=== PATIENT | female | born 1945 | race Caucasian/White ===

== ENCOUNTER 2018-07-16 14:58 | Inpatient (IN) | payer OTHER ==
[~2018-07-16] VITALS: Ht 152.4 cm; Wt 70.8 kg
--- NOTE | ~2018-07-16 | 2DMMODE ---
[facility] [address] [place] [address] 2 D/M-MODE ECHOCARDIOGRAM Name: TANIKA STEVENSON Room #: 456-P ADM IN M.R.#: [id number] Admission: 07/16/18 Attend Phys: Sherice Vicente Discharge: Date of : 43 Date of Service: 07/17/18 1151 Report #: [id number] THIS REPORT FOR: //name// APPROVED REPORT Study performed: 07/17/2018 11:12:57 EXAM: Comprehensive 2D, Doppler, and color-flow Echocardiogram Patient Location: Echo lab Room #: [facility] Status: routine BSA: 1.74 HR: 101 bpm BP: 110/65 mmHg Rhythm: Tachycardia Other Information Study Quality: Adequate/low parasternal window. Lung disease. Indications Dyspnea Hx: COPD 2D Dimensions RVDd: 30.38 mm IVSd: 11.06 (7-11mm) LVOT Diam: 20.42 (18-24mm) LVDd: 38.53 mm PWd: 10.14 (7-11mm) LVDs: 24.16 (25-40mm) Aortic Root: 32.08 mm Volumes Left Atrial Volume (Systole) Single Plane 4CH: 28.67 mL Single Plane 2CH: 27.76 mL LA ESV Index: 18.00 mL/m2 Aortic Valve AoV Peak Adelfo.: 1.29 m/s AO Peak Gr.: 6.64 mmHg LVOT Max P.01 mmHg LVOT Max V: 1.23 m/s EFRA Vmax: 3.11 cm2 Mitral Valve E/A Ratio: 0.6 [facility] [id number] [place] [address] 2 D/M-MODE ECHOCARDIOGRAM Name: ELVATANIKA Room #: 456-P [facility].#: [id number] Admission: 07/16/18 Attend Phys: Sherice Vicente Discharge: Date of : 43 Date of Service: 07/17/18 1151 Report #: [id number] MV Decel. Time: 204.54 ms MV E Max Adelfo.: 0.72 m/s MV A Adelfo.: 1.24 m/s MV PHT: 59.32 ms IVRT: 103.81 ms Pulmonary Valve PV Peak Adelfo.: 1.31 m/s PV Peak Gr.: 6.84 mmHg Pulmonary Vein P Vein S: 0.81 m/s P Vein D: 0.38 m/s P Vein S/D Ratio: 2.13 Tricuspid Valve RAP Estimate: 5.00 mmHg Left Ventricle The left ventricle is normal size. There is normal LV segmental wall motion. There is normal left ventricular wall thickness. Left ventricular systolic function is hyperdynamic. LVEF is 65-70%. Mild diastolic dysfunction is present (impaired relaxation pattern). Right Ventricle The right ventricle is normal size. The right ventricular systolic function is normal. Atria The left atrium size is normal. The right atrium size is normal. Aortic Valve The aortic valve is grossly normal in structure. No aortic regurgitation is present. There is no aortic valvular stenosis. Mitral Valve The mitral valve is normal in structure. There is no mitral valve regurgitation noted. No evidence of mitral valve stenosis. Tricuspid Valve The tricuspid valve is normal in structure. There is no tricuspid valve regurgitation noted. Unable to assess PA pressure. Pulmonic Valve [facility] [address] [place] [address] 2 D/M-MODE ECHOCARDIOGRAM Name: TANIKA STEVENSON Room #: 456-P ADM IN M.R.#: [id number] Admission: 07/16/18 Attend Phys: Sheirce Vicente Discharge: Date of : 43 Date of Service: 07/17/18 1151 Report #: [id number] Pulmonic valve is not well visualized. Great Vessels The aortic root is normal in size. IVC is normal in size and collapses >50% with inspiration. Pericardium There is no pericardial effusion. <Conclusion> The left ventricle is normal size. LVEF is 65-70%. The aortic valve is grossly normal in structure. The mitral valve is normal in structure. The tricuspid valve is normal in structure. There is no tricuspid valve regurgitation noted. Unable to assess PA pressure. Pulmonic valve is not well visualized. There is no pericardial effusion. <ELECTRONICALLY SIGNED> By: Osei Sow MD 07/17/18 1151 1151 1151 Osei Sow MD /INF
--- NOTE | ~2018-07-16 | EKG ---
[address] [address] ELECTROCARDIOGRAM REPORT Name: TANIKA STEVENSON Room #: 456-P ADM IN M.R.#: [id number] Admission: 07/16/18 Attend Phys: Sherice Montez Discharge: Date of : 43 Report #: [id number] THIS REPORT FOR: //name// [facility] ED Test Date: 2018-07-16 Test Time: 15:16:54 Pat Name: TANIKA STEVENSON Department: Room: 456 Gender: F Gate Watchman: YOEL : 1945 Requested By: Manjula Sosa Order Number: [id number] MD: Iván Ordoñez Measurements Intervals [place] Rate: 100 P: 49 [place]: 158 QRS: 4 QRSD: 75 T: 59 QT: 342 QTc: 442 Interpretive Statements Sinus tachycardia Otherwise no significant abnormality No previous ECG available for comparison Electronically Signed On 07-17-2018 7:53:10 QA TECH by Iván Ordoñez [email or web address] <ELECTRONICALLY SIGNED> By: Iván Ordoñez MD, [facility] 07/17/18 0753 1516 1516 Iván Ordoñez MD, FACC /EPI
[~2018-07-16 14:58] MED LIST: LEVAQUIN 500 M500 M2 PO
[2018-07-16 14:59] VITALS: BP 123/60
[2018-07-16 15:30] LABS: BE(vivo) 3.1 mmol/L (-2 to +3); HCO3 28.4 mmol/L (22.0-26.0); PCO2 VENOUS 46.1 mmHg (41.0-51.0); PO2 VENOUS 45.5 mmHg (35.0-45.0)
[2018-07-16 15:37] LABS: BASOPHILS 0.6 % (0.0-2.0); EOSINOPHILS 1.1 % (0.0-3.0); HEMATOCRIT 38.3 % (37.0-47.0); HEMOGLOBIN 13.2 gm/dL (12.0-15.0); LYMPHOCYTES 21.2 % (24.0-44.0); MCH 30.1 pg (26.0-34.0); MCHC 34.3 g/dL (28.0-37.0); MCV 87.6 fL (80.0-100.0); MONOCYTES 11.7 % (1.0-8.0); PLATELET COUNT 188 thou/uL (150-400); POLYS 65.4 % (36.0-66.0); RBC 4.38 mil/uL (4.20-5.00); RDW 14.5 % (10.5-14.5); WBC 7.7 thou/uL (4.0-11.0)
[2018-07-16 15:46] LABS: ANION GAP 6 mmol/L (7-16); BUN 10 mg/dL (7-18); CALCIUM 10.4 mg/dL (8.5-10.1); CHLORIDE 96 mmol/L (98-107); CO2 30 mmol/L (21-32); CREATININE 0.8 mg/dL (0.6-1.0); GLUCOSE 113 mg/dL (74-106); SODIUM 132 mmol/L (136-145)
[2018-07-16 15:50] LABS: POTASSIUM 4.4 mmol/L (3.5-5.1)
[2018-07-16 15:54] LABS: ALBUMIN 3.6 g/dL (3.4-5.0); SGOT 32 U/L (15-37); SGPT 25 U/L (30-65); TOTAL BILIRUBIN 0.5 mg/dL (<0.1-1.0); TOTAL PROTEIN 7.8 g/dL (6.4-8.2); TROPONIN-I <0.06 ng/mL (<0.06)
[2018-07-16] MEDS ORDERED: TYLENOL325 M1 PO (17:29)
[2018-07-16] MEDS ORDERED: VITAMIN D1000 UNI2 PO (17:29)
[2018-07-16] MEDS ORDERED: GARLIC1000 MG PO (17:30)
[2018-07-16] MEDS ORDERED: VENTOLIN HFA 1818 GM INH (17:30)
[2018-07-16 20:24] VITALS: BP 114/66
[2018-07-16 20:55] VITALS: BP 108/72
[2018-07-16 21:10] VITALS: BP 103/64
[2018-07-17 04:20] VITALS: BP 98/62
[2018-07-17 04:38] LABS: HEMATOCRIT 37.4 % (37.0-47.0); HEMOGLOBIN 12.8 gm/dL (12.0-15.0); MCH 30.6 pg (26.0-34.0); MCHC 34.3 g/dL (28.0-37.0); MCV 89.2 fL (80.0-100.0); RBC 4.19 mil/uL (4.20-5.00); RDW 14.4 % (10.5-14.5); WBC 5.5 thou/uL (4.0-11.0)
[2018-07-17 04:43] LABS: CALCIUM 9.9 mg/dL (8.5-10.1); CREATININE 0.8 mg/dL (0.6-1.0); POTASSIUM 4.6 mmol/L (3.5-5.1)
[2018-07-17 05:38] LABS: URINE BILIRUBIN NEGATIVE (Negative); URINE BLOOD TRACE (Negative); URINE CLARITY SL CLOUDY; URINE COLOR YELLOW; URINE GLUCOSE-RANDOM* 2+ (Negative); URINE KETONES NEGATIVE (Negative); URINE LEUKOCYTES-REFLEX NEGATIVE (Negative); URINE NITRITE-REFLEX NEGATIVE (Negative); URINE PROTEIN (DIPSTICK) 2+ (Negative); URINE SPECIFIC GRAVITY 1.015 (1.005-1.035); URINE UROBILINOGEN 0.2 E.U./dl (0.2-1.0)
[2018-07-17 05:48] LABS: AMORPHOUS PHOSPHATES Many /LPF (None Seen); BACTERIA-REFLEX 1-9 Few /HPF (None Seen); CASTS None Seen /LPF (None Seen); CRYSTALS None Seen /LPF (None Seen); MUCUS None Seen strn/LPF (None Seen); SQUAMOUS 0-3 Few /LPF (0-3); URINE RBC 0-2 Rare /HPF (0-2); URINE WBC-REFLEX None Seen /HPF (0-5)
[2018-07-17 08:53] VITALS: BP 110/65
[2018-07-17 15:01] VITALS: BP 102/67
[2018-07-17 19:42] VITALS: BP 106/69
[2018-07-18 03:55] VITALS: BP 113/74
[2018-07-18 06:27] LABS: ABSOLUTE NEUTROPHILS 5.9 thou/uL (1.4-8.2); BASOPHILS 0.1 % (0.0-2.0); HEMATOCRIT 39.5 % (37.0-47.0); HEMOGLOBIN 13.2 gm/dL (12.0-15.0); LYMPHOCYTES 11.2 % (24.0-44.0); MCH 30.2 pg (26.0-34.0); MCHC 33.5 g/dL (28.0-37.0); MCV 90.2 fL (80.0-100.0); MONOCYTES 1.7 % (1.0-8.0); PLATELET COUNT 213 thou/uL (150-400); RBC 4.38 mil/uL (4.20-5.00); RDW 14.8 % (10.5-14.5); WBC 6.7 thou/uL (4.0-11.0)
[2018-07-18 06:39] LABS: CALCIUM 9.8 mg/dL (8.5-10.1); CREATININE 0.8 mg/dL (0.6-1.0); MAGNESIUM 2.4 mg/dL (1.8-2.4); POTASSIUM 4.5 mmol/L (3.5-5.1)
[2018-07-18 08:11] VITALS: BP 113/67
[2018-07-18] MEDS ORDERED: IPRATROPIU0.2 MG/1 M INH (12:12)
[2018-07-18] MEDS ORDERED: MIRALAX17 GM PO (12:12)
[2018-07-18] MEDS ORDERED: ALPRAZOLAM 0.0.25 M1 PO (12:12)
[2018-07-18 12:22] VITALS: BP 113/67
[2018-07-18 13:28] VITALS: BP 113/67
[2018-07-19] MEDS ORDERED: XOPENEX0.63 MG/3 INH (11:01)
== END 2018-07-18 14:01 | disposition home or self-care (01) | DRG 189 ==
LOC: ER 14:58 → EROBS 18:43 → 4W 18:43 → ENTRNSPT 07-18 13:34 → EDTRNSPTSTS 07-18 13:39 → 4W 07-18 14:01
PROVIDERS: Internal Medicine; Nurse Practitioner Family; Student in an Organized Health Care Education/Training Program
DX: J96.21 Acute and chronic respiratory failure with hypoxia (principal); N39.0 Urinary tract infection, site not specified; J44.1 Chronic obstructive pulmonary disease with (acute) exacerbation; R00.0 Tachycardia, unspecified; E55.9 Vitamin D deficiency, unspecified; F41.1 Generalized anxiety disorder; T48.6X5A Adverse effect of antiasthmatics, initial encounter; Z88.2 Allergy status to sulfonamides; Z88.8 Allergy status to other drugs, medicaments and biological substances; Z88.6 Allergy status to analgesic agent; Z91.013 Allergy to seafood; Z85.3 Personal history of malignant neoplasm of breast; Z87.891 Personal history of nicotine dependence; Z90.49 Acquired absence of other specified parts of digestive tract; Z79.899 Other long term (current) drug therapy
CPT/HCPCS: 10045